=== PATIENT | female | born 1930 | race Caucasian/White ===

== ENCOUNTER 2016-04-28 11:05 | Emergency (ER) | payer OTHER ==
[~2016-04-28] VITALS: Ht 162.6 cm; Wt 60.3 kg
[2016-04-28] MEDS ORDERED: ANAS1TAB8 PO (11:25)
--- NOTE | 2016-04-28 12:25 | NUR ---
MSE CCOMPLETED, PT HAS CAM BOOT PLACED TO RT ANKLE AND WALKER DISPENSED. PT DEMONSTRATED PROPER USE OF WALKER. PT ALSO D/C'D HOME. ACI/RX X1 GIVEN. PT AMBULATED WITH WALKER W/O DIFF. PT'S FAMILY PRESENT AND TO DRIVE.
[2016-04-28 12:28] VITALS: BP 120/74
== END 2016-04-28 12:28 | disposition home or self-care (01) ==
LOC: ER 11:07
DX: S82.401A Unspecified fracture of shaft of right fibula, initial encounter for closed fracture (principal); W18.30XA Fall on same level, unspecified, initial encounter; Y93.89 Activity, other specified; Y99.8 Other external cause status; Y92.89 Other specified places as the place of occurrence of the external cause
CPT/HCPCS: 73560; 73610; A4663